=== PATIENT | male | born 1955 | race Caucasian/White ===

== ENCOUNTER 2023-01-25 08:47 | Emergency (ER) | payer OTHER, BC ==
[2023-01-25] MEDS ORDERED: IBUPROFEN 400 MG TABLET (FP) PO ONE ×2 (09:21→09:29)
[2023-01-25 09:25] VITALS: TEMP 98.7; BMI 30.8
[2023-01-25] MEDS ORDERED: CYCLOBENZAPRINE HCL 10 MG TABLET (FP) PO ONE (09:26)
[2023-01-25] MEDS ORDERED: CYCLOBENZAPRINE HCL 5 MG TABLET ONE ×2 (09:30→09:32)
[2023-01-25 11:39] VITALS: BP 165/84; PULSE 80; RESP 20
== END 2023-01-25 11:49 | disposition home or self-care (01) ==
LOC: FER 08:47
DX: S39.92XA Unspecified injury of lower back, initial encounter (principal); M25.561 Pain in right knee; W10.8XXA Fall (on) (from) other stairs and steps, initial encounter
CPT/HCPCS: 72070-TC-FY; 72100-TC-FY; 73562-TC-RT-FY; 99285-25

== ENCOUNTER 2023-01-28 14:25 | Emergency (ER) | payer OTHER, BC ==
[2023-01-28 14:49] VITALS: BMI 30.8
[2023-01-28 18:07] VITALS: BP 161/86; PULSE 97; RESP 14; TEMP 98.6
== END 2023-01-28 19:14 | disposition home or self-care (01) ==
LOC: JER 14:25
DX: R07.81 Pleurodynia (principal); W10.8XXA Fall (on) (from) other stairs and steps, initial encounter
CPT/HCPCS: 71250-TC; 99284-25